=== PATIENT | male | born 1935 | race Caucasian/White ===

== ENCOUNTER 2019-10-08 12:38 | Outpatient (CLI) | payer OTHER, SELFPAY ==
--- NOTE | ~2019-10-08 | XR_ITS ---
EXAMINATION: XR chest 2V DATE: 10/08/2019 13:28 INDICATION: Fever, unspecified. TECHNIQUE: Frontal and lateral views of the chest were obtained. COMPARISON: Chest single view 11/22/2009 FINDINGS: There is mild scarring at the lung apices. No pleural effusion or pneumothorax. The heart s ize is normal. IMPRESSION: 1. Mild scarring at the lung apices. Reviewed, dictated and finalized at location A.
[2019-10-08 13:10] LABS: Basophils Percent Auto 0.4 % (0.2-1.2); Eosinophils Absolute Auto 0.1 K/mm3 (0-0.3); Eosinophils Percent Auto 1.2 % (0-4.4); Hematocrit 40.2 % (42.0-52.0); Immature Granulocyte Absolute 0.09 K/mm3 (0.00-0.031); Lymphocytes Absolute Auto 1.32 K/mm3 (0.9-3.2); Lymphocytes Percent Auto 14.1 % (18.3-44.2); Mean Corpuscular HGB Conc 32.3 g/dl (32-36); Mean Corpuscular Hemoglobin 30.2 pg (26-34); Mean Corpuscular Volume 93.5 fl (80-100); Mean Platelet Volume 9.6 fl (7.4-10.4); Monocytes Absolute Auto 0.6 K/mm3 (0.1-0.6); Neutrophils Absolute Auto 7.3 K/mm3 (1.3-6.7); Neutrophils Percent Auto 77.3 % (45.5-73.1); Platelet Count Result 291 k/mm3 (150-375); Red Cell Distribution Width 13.2 % (11.5-14.5); White Blood Count 9.4 K/mm3 (4.5-10.0)
== END 2019-10-08 12:39 | disposition home or self-care (01) ==
PROVIDERS: PCP Emergency Medicine; Visit Provider Emergency Medicine
DX: E78.5 Hyperlipidemia, unspecified (principal); R50.9 Fever, unspecified
CPT/HCPCS: 36415; 71046; 85025; 87077; 87086; 87088; 87186

== ENCOUNTER 2020-07-30 14:00 | Outpatient (CLI) | payer OTHER, MEDICARE, SELFPAY | END 2020-07-30 14:01 | disposition home or self-care (01) | LOC: ANHCOVIDVC 14:00 | PROVIDERS: PCP Emergency Medicine | DX: Z23 Encounter for immunization (principal) | CPT/HCPCS: 0001A; 91300 ==

== ENCOUNTER 2020-08-20 14:10 | Outpatient (CLI) | payer OTHER, MEDICARE, SELFPAY | END 2020-08-20 14:11 | disposition home or self-care (01) | LOC: ANHCOVIDVC 14:10 | PROVIDERS: PCP Emergency Medicine | DX: Z23 Encounter for immunization (principal) | CPT/HCPCS: 0002A; 91300 ==

== ENCOUNTER 2021-03-16 13:22 | Outpatient (CLI) | payer OTHER, SELFPAY ==
[2021-03-16 14:14] LABS: Alanine Aminotransferase 7 U/L (4-50); Alkaline Phosphatase 84 U/L (38-126); Anion Gap 8 mmol/L (8-16); Aspartate Amino Transferase 21 U/L (17-59); Bilirubin,Total 0.7 mg/dL (0.2-1.3); Blood Urea Nitrogen 21 mg/dL (9-20); Calcium 9.3 mg/dL (8.4-10.2); Carbon Dioxide 27 mmol/L (22-30); Chloride 106 mmol/L (98-107); Estimated Glomerular Filt Rate > 60; Glucose 101 mg/dL (65-110); Potassium 3.4 mmol/L (3.4-5.0); Sodium 141 mmol/L (137-145)
== END 2021-03-16 13:23 | disposition home or self-care (01) ==
PROVIDERS: PCP Emergency Medicine; Visit Provider Emergency Medicine
DX: E78.5 Hyperlipidemia, unspecified (principal)
CPT/HCPCS: 36415; 80053

== ENCOUNTER 2021-04-25 12:46 | Inpatient (IN) | payer OTHER, SELFPAY ==
[2021-04-25] VITALS (24 sets, daily range): BP systolic 135–159; BP diastolic 82–112; PULSE 83–108; RESP 0–40; TEMP 37.1; O2SAT 87–100; BMI 25.2
--- NOTE | ~2021-04-25 | XR_ITS ---
EXAMINATION: XR chest 2V EXAM DATE: 04/25/2021 13:38 INDICATION: sob/ low pulse ox . TECHNIQUE: Frontal and lateral projections of the chest obtained and reviewed. Comparison is made to prior examination from 10/08/2019. FINDINGS: Diffuse bilateral airspace disease, peripheral predominant suggests possibility of COVID 19 pneumonia, but could also be edema given the cardiomegaly cardiomegaly, small to moderate left and s mall right pleural effusions. No pneumothorax. There are bony degenerative changes. IMPRESSION: 1. Diffuse pneumonia and/or edema. 2. Cardiomegaly, small to moderate left, small right pleural effusions. Reviewed, dictated and finalized at location A. [employer]
--- NOTE | 2021-04-25 12:57 | ECG_ITS ---
Measurements Intervals [place] Rate: 102 P: 62 SC: 148 QRS: 27 QRSD: 119 T: -55 QT: 380 QTc: 496 Interpretive Statements SINUS TACHYCARDIA ATRIAL AND VENTRICULAR PREMATURE COMPLEXES POSSIBLE LEFT ATRIAL ENLARGEMENT INTRAVENTRICULAR CONDUCTION DELAY BORDERLINE R WAVE PROGRESSION, ANTERIOR LEADS INFERIOR INFARCT, AGE INDETERMINATE BORDERLINE ST-T WAVE ABNORMALITY- LATERAL LEADS ABNORMAL ECG Electronically Signed On 04-25-2021 13:27:29 NURSE RESEARCH by Jordan Clay D.O.
--- NOTE | 2021-04-25 13:13 | ED.SOB ---
HPI - SOB/Dyspnea General Chief Complaint: Shortness of Breath/Dyspnea Stated Complaint: SOB Time Seen by Provider: 04/25/21 12:59 History of Present Illness HPI Narrative: Patient is an 86-year-old male who presents to the ER with hypoxia and cough. Patient has history of Parkinson's and dementia. is here to give a history but it is still difficult. Apparently patient was unable to get out of bed today which is abnormal forearm and the noticed that he had a throaty or cough. EMS arrived and recognize that he was hypoxic and placed on supplemental O2 which she does not usually wear. No history of COPD. reports patient's dementia has been getting worse and that their primary care doctor and said there is not much else that can be done. No known sick contacts according the . No reported fevers or chills. Related Data Home Medications Medication Instructions Recorded Confirmed melatonin 5 mg capsule mg PO .HS cap 04/05/20 03/23/21 Allergies Allergy/AdvReac Type Severity Reaction Status Date / Time Penicillins Allergy Unknown Unknown Verified 03/23/21 15:40 NEWSPAPER INK Allergy Mild SNEEZING Uncoded 03/02/20 14:46 Review of Systems Review of Systems: ROS unobtainable: Yes unobtainable due to mental status [facility] Past Medical History Medical History (Updated 04/25/21 @ 20:29 by Darrel Perez MD) Benign prostatic hyperplasia Chronic anemia Coronary artery disease Dementia Hypercholesterolemia Parkinson disease Surgical History Surgical History (Updated 04/25/21 @ 14:26 by Destiny Henriquez PA-C) History of cholecystectomy History of left inguinal hernia repair History of percutaneous coronary intervention Stent x1 History of tonsillectomy Family History Family History (Updated 04/25/21 @ 14:26 by Destiny Henriquez PA-C) Father Family history of heart disease in male family member before age 55 Other Cancer Diabetes mellitus Hypertension Social History Social History (Updated 04/25/21 @ 20:17 by Destiny Henriquez PA-C) Social History: Surrogate decision maker: Desiree Watson () or Tiffany Tonyariellesaroj (daughter). Code status: Do not resuscitate. Smoking status: Never smoker Alcohol intake: never Substance use: never Additional living arrangements comments: The patient lives with his in [place]. Additional occupation/education comments: Retired. Exam Narrative: GENERAL: Chronically ill-appearing, well-nourished, and in no acute distress. HEAD: Normocephalic, atraumatic. EYES: PERRL and EOMI. ENT: Mucous membranes moist. CHEST: Rales bilaterally bases. No respiratory distress. HEART: Regular rate and rhythm. Normal peripheral pulses. ABDOMEN: Soft, nontender, nondistended. EXTREMITIES: Normal range of motion. No edema. SKIN: Warm, dry, no rash. NEURO: Patient is awake and alert alert but he is not oriented. This is his baseline. Course Course Emergency Course: Admit to hospitalist service. Lasix ordered for volume overload. Antibiotics for presumed pneumonia as well. Patient will be swabbed for Covid. Vital Signs Vital signs: Vital Signs Temperature 98.8 F 04/25/21 12:50 Pulse Rate 108 H 04/25/21 12:50 Respiratory Rate 24 H 04/25/21 12:50 Blood Pressure 159/107 H 04/25/21 12:50 Pulse Oximetry 98 04/25/21 12:50 Temperature 98.8 F 04/25/21 12:50 Pulse Rate 96 04/25/21 16:31 Respiratory Rate 23 H 04/25/21 16:31 Blood Pressure 146/82 H 04/25/21 16:31 Pulse Oximetry 98 04/25/21 16:31 MDM - SOB/Dyspnea Lab Data Result diagrams: 04/25/21 13:20 04/25/21 13:20 Labs: Lab Results 04/25/21 04/25/21 04/25/21 Range/Units 13:18 13:20 13:20 WBC 10.5 H (4.5-10.0) K/mm3 RBC 4.25 L (4.6-6.20) M/mm3 Hgb 12.3 L (14.0-18.0) g/dL Hct 40.0 L (42.0-52.0) % MCV 94.1 (80-100) fl MCH 28.9 (26-34) pg MCHC 30.8 L (32-36) g/dl RDW
[2021-04-25 13:35] LABS: Basophils Absolute Auto 0.1 K/mm3 (0.0-0.1); Basophils Percent Auto 0.6 % (0.2-1.2); Eosinophils Absolute Auto 0.1 K/mm3 (0-0.3); Eosinophils Percent Auto 0.5 % (0-4.4); Hemoglobin 12.3 g/dL (14.0-18.0); Immature Granulocyte Absolute 0.02 K/mm3 (0.00-0.031); Immature Granulocyte Percent A 0.2 % (0-0.5); Lymphocytes Absolute Auto 0.79 K/mm3 (0.9-3.2); Lymphocytes Percent Auto 7.5 % (18.3-44.2); Mean Corpuscular HGB Conc 30.8 g/dl (32-36); Mean Corpuscular Hemoglobin 28.9 pg (26-34); Mean Corpuscular Volume 94.1 fl (80-100); Mean Platelet Volume 9.7 fl (7.4-10.4); Monocytes Absolute Auto 0.6 K/mm3 (0.1-0.6); Monocytes Percent Auto 6.1 % (2.6-8.5); Neutrophils Percent Auto 85.1 % (45.5-73.1); Platelet Count Result 371 k/mm3 (150-375); Red Blood Count 4.25 M/mm3 (4.6-6.20); Red Cell Distribution Width 14.1 % (11.5-14.5); White Blood Count 10.5 K/mm3 (4.5-10.0)
[2021-04-25 13:50] LABS: Alanine Aminotransferase 19 U/L (4-50); Albumin Level 3.7 g/dL (3.5-5.1); Alkaline Phosphatase 102 U/L (38-126); Anion Gap 5 mmol/L (8-16); Aspartate Amino Transferase 22 U/L (17-59); Bilirubin,Total 0.6 mg/dL (0.2-1.3); Blood Urea Nitrogen 31 mg/dL (9-20); Carbon Dioxide 32 mmol/L (22-30); Chloride 106 mmol/L (98-107); Estimated CRCL calculation 60 ml/min; Estimated Glomerular Filt Rate > 60; Glucose 103 mg/dL (65-110); Potassium 3.5 mmol/L (3.4-5.0); Sodium 143 mmol/L (137-145)
[2021-04-25 13:55] LABS: Lactic Acid Reflex 1.1 mmol/L (0.7-2.1)
[2021-04-25 13:58] LABS: NT Pro B Type Natriuretic Pept 10600 pg/mL (5-100)
[2021-04-25] MEDS: FUROSEMIDE INJ 40 MG/4 ML VIAL IV PUSH ×2 (14:06→22:11)
--- NOTE | 2021-04-25 14:45 | PM.IMHP ---
H&P: HPI History of Present Illness Date/Time: 04/25/21 14:45 Chief Complaint: Shortness of breath and cough. Narrative: This is an 86-year-old male with Parkinson's disease, dementia, and coronary artery disease who presented to the emergency department earlier today via EMS from home for evaluation of shortness of breath and cough. Given his dementia he is not able to provide much in the way of history and as such the following is obtained via a review of his electronic medical records as well as discussions with his . For the last year so he has been more weak and not wanting to get out of bed and notes that he has had a wet cough. This morning he appeared short of breath and more confused than usual and thus she called the ambulance. On EMS arrival his SpO2 was in the 80s with labored breathing for which he was given Solu-Medrol and albuterol nebulizer. He has since been placed on 4 L nasal cannula to maintain his oxygen saturations the mid 90s. Chest x-ray showed diffuse pneumonia and/or edema in addition to cardiomegaly and bilateral pleural effusions and he is being admitted in this setting. He and his do not leave the house much and they have no known exposure to those positive for COVID 19. No witnessed episodes of aspiration. has not noticed any lower extremity edema. He has been afebrile since arrival to the hospital. No vomiting or diarrhea. At the time my evaluation the patient opens his eyes only a little and shakes his head when asked if he had any pain. He does not speak, answer questions, or follow commands at this time. Review of Systems Review of Systems: Unable to obtain given clinical condition as detailed above. [facility] Past Medical History Medical History (Updated 04/25/21 @ 20:23 by Destiny Henriquez PA-C) Benign prostatic hyperplasia Chronic anemia Coronary artery disease Dementia Hypercholesterolemia Parkinson disease Surgical History Surgical History (Updated 04/25/21 @ 14:26 by Destiny Henriquez PA-C) History of cholecystectomy History of left inguinal hernia repair History of percutaneous coronary intervention Stent x1 History of tonsillectomy Family History Family History (Updated 04/25/21 @ 14:26 by Destiny Henriquez PA-C) Father Family history of heart disease in male family member before age 55 Other Cancer Diabetes mellitus Hypertension Social History Social History (Updated 04/25/21 @ 20:17 by Destiny Henriquez PA-C) Social History: Surrogate decision maker: Desiree Watson () or Tiffany Koo (daughter). Code status: Do not resuscitate. Smoking status: Never smoker Alcohol intake: never Substance use: never Additional living arrangements comments: The patient lives with his in [place]. Additional occupation/education comments: Retired. Meds Home Medications and Allergies Home Medications Medication Instructions Recorded Confirmed Type melatonin 5 mg capsule mg PO .HS cap 04/05/20 03/23/21 History carbidopa 25 mg-levodopa 100 mg See Rx Instructions .ROUTE 07/21/20 03/23/21 Rx tablet .COMPLEX #270 tablet haloperidol 0.5 mg tablet See Rx Instructions .ROUTE 10/26/20 03/23/21 Rx .COMPLEX #180 tablet donepezil 10 mg tablet See Rx Instructions .ROUTE 10/29/20 03/23/21 Rx .COMPLEX #90 tablet temazepam 15 mg capsule 15 mg PO ONCE PRN #30 cap 02/01/21 03/23/21 Rx Allergies Allergy/AdvReac Type Severity Reaction Status Date / Time Penicillins Allergy Unknown Unknown Verified 03/23/21 15:40 NEWSPAPER INK Allergy Mild SNEEZING Uncoded 03/02/20 14:46 Vital Signs Vital Signs - 24 hr 04/25/21 12:50 Temperature 98.8 F Pulse Rate 108 H Respiratory Rate 24 H Blood Pressure 159/107 H Pulse Oximetry 98 Exam Narrative: General: Moderately ill-appearing elderly male in the semi-Swann position in bed. Weight: 80 kg. BMI: 25.3. HEENT: Small defect in left frontal parietal region. Pupils approxi
[2021-04-25 15:45] LABS: NT Pro B Type Natriuretic Pept 9990 pg/mL (5-100)
--- NOTE | 2021-04-25 16:46 | PC.NURSE ---
pts breathing irregular. noted to have 10 second periods of apnea followed by shallow rapid breathing.
--- NOTE | 2021-04-25 20:40 | PC.NURSE ---
report given to Jen. Waiting on room to be clean.
[2021-04-25 22:45] LABS: Alveolar/Arterial O2 Gradient 515.4 mmHg; Base Excess ABG 7.1 mEq/l (+/-2.0); Fractional Inspired Oxygen 100 %; HCO3 ABG 40.3 mEq/l (22.0-26.0); Oxygen Content ABG 17.8 %vol (16.0-22.0); Oxyhemoglobin 91.4 % THb (90.0-100.0); PO2 ABG 80.3 mmHg (80.0-100.0); Total Hemoglobin 13.8 g/dL (12.0-18.0)
[2021-04-25 22:48] LABS: pH ABG 7.154 (7.350-7.450)
[2021-04-25 22:49] LABS: Device NON-REBREATHER MASK; Modified Allen's Test Pass; PCO2 ABG 117.3 mmHg (35.0-45.0); Site Drawn LEFT RADIAL
--- NOTE | 2021-04-25 22:50 | PC.NURSE ---
This patient, Sahil Watson, was admitted to IMU Room 232-01 on 04/25/21 at 2146. Patient/family oriented to hospital policies and general routines including ID bracelet, bed and alarms, visiting hours, pain management, procedures, bathroom and other care routines, personal items, smoking policy, room service/diet, and visiting hours. Information on how to activate the Rapid Response Team has been discussed. Patient/Family are encouraged to report perceived risks to care and to ask questions if they do not understand what they are told or what they should do.
--- NOTE | 2021-04-25 22:51 | PC.NURSE ---
Pt agonal breathing, unresponsive to painful stimuli, pupils are nonreactive. unable to maintain O2 saturation. Provider at bedside. Family called, requests pt be made comfort care as pt did not want to be intubated.
[2021-04-25] MEDS: WATER FOR IRRIGATION, STERILE 1,000 ML BOTTLE 1000 ML (23:00)
[2021-04-26] VITALS: BP 132/77; PULSE 93; PULSE 96; RESP 18; TEMP 36.1; O2SAT 95
[2021-04-26] MEDS: MORPHINE SULFATE ORAL CONC SOL (*CRX) 10 MG/0.5 ML SYRINGE 5 MG PO (00:31)
[2021-04-26] MEDS: MORPHINE SULFATE (*CRX) 4 MG/ML INJ IV PUSH ×2 (00:42→01:45)
[2021-04-26] MEDS: LORazepam (*CRX) 2 MG/ML 30 ML ORAL CONCENTRATE 1 MG SUBLINGUAL (00:54)
[2021-04-26] MEDS: SCOPOLAMINE 1.5 MG PATCH TRANSDERM (01:51)
--- NOTE | 2021-04-26 03:25 | PC.NURSE ---
Pt at 0245, family at bedside. Dr Alvarado and guest advisor notified. Family to call back with home arrangements.
[2021-04-27 02:33] LABS: SARS-CoV-2 RNA PCR Negative
--- NOTE | 2021-05-12 00:43 | PM.DDS ---
Discharge Summary Date and Time Date of : 04/26/21 Time of : 02:45 Probable Cause of Probable Cause of : Respiratory failure due to congestive heart failure. Summary Hospital Course: The patient was admitted to the hospital approximately 12 hours before he passed after presenting with cough and shortness of breath. He was found to have diffuse pneumonia and/or pulmonary edema on chest x-ray though given his Parkinson's aspiration was a consideration as well. During my interview the patient was not very interactive and his gave all of the history. She indicated that he had been in declining health and she wished for him to be comfortable but she would like to attempt treatment and as such he was started on empiric antibiotics and diuretics. No further testing was ordered per her wish. He was afebrile on arrival to the emergency department and his blood pressures remained stable throughout the majority of the night. His white blood cell count was only mildly elevated at 10.5 though he did have a predominance of neutrophils[place] [address] and his chemistries were relatively unremarkable. EKG showed a sinus tachycardia with ectopy, interventricular conduction delay, and borderline ST T-wave abnormalities in the lateral leads. SARS-CoV-2 by PCR came back negative. I saw the patient the emergency department at 14:45 and he was boarded in the emergency department for majority of the day. He made it up to the floor at 21:46 and I received a call from the patient's nurse at 22:51 who indicated to me that the patient was agonal breathing, unresponsive to painful stimuli, and they were having difficulties maintaining his O2 saturations. Family members were called and indicated that the patient indeed was a DNR and she did not want heroics. Comfort measures were initiated and he peacefully at 02:45 on 04/26/2021. As I was gone for the day, Dr. Alvarado was notified of the patient's passing. Additional Data Confirmation of as documented by pronouncing clinician: Pupillary Reflex, Palpable Pulses, Response to Stimuli, Heart Tones and Breath Sounds Name of Provider Notified: marissa flores Time Provider Notified: 03:19 Provider Requests Autopsy: No Family Requests Autopsy: No Speed Reading Teacher Notified: Yes Date [facility] Notified of : 04/26/21 Time [facility] Notified of : 03:27 Advance directives: Yes Hospice patient?: No
== END 2021-04-26 02:45 | disposition expired | DRG 189 ==
LOC: ANHED 15:12 → ANHIMU 15:59
PROVIDERS: Physician Assistant; Admitting Provider Family Medicine; Emergency Provider Emergency Medicine; PCP Emergency Medicine; Visit Provider Internal Medicine
DX: J96.01 Acute respiratory failure with hypoxia (principal); J18.9 Pneumonia, unspecified organism; Z20.822 Contact with and (suspected) exposure to COVID-19; R93.89 Abnormal findings on diagnostic imaging of other specified body structures; I50.9 Heart failure, unspecified; G20 Parkinson's disease; F02.80 Dementia in other diseases classified elsewhere, unspecified severity, without behavioral disturbance, psychotic disturbance, mood disturbance, and anxiety; I25.10 Atherosclerotic heart disease of native coronary artery without angina pectoris; E78.00 Pure hypercholesterolemia, unspecified; N40.0 Benign prostatic hyperplasia without lower urinary tract symptoms; D64.9 Anemia, unspecified; Z66 Do not resuscitate; Z79.899 Other long term (current) drug therapy; Z88.0 Allergy status to penicillin
CPT/HCPCS: 36415; 36600; 71046; 80053; 82805; 83605; 83880; 85025; 87040; 93005; 96374; 99291; A9270; C9803; J0456; J0696; J1940; J2270; U0003; U0005